=== PATIENT | male | born 1965 | race Asian ===

== ENCOUNTER 2024-04-22 10:20 | Day surgery (SDC) | payer OTHER, SELFPAY ==
--- NOTE | 2024-04-22 | PATH_ITS ---
[facility] Accession Number: [id number] No. of containers..01 Tissue . 01 Material submitted: . colon - TRANSVERSE COLON POLYPS . 01 Diagnosis: A. TRANSVERSE COLON POLYPS, POLYPECTOMY: Tubular adenoma. Sessile serrated adenoma (2 fragments). MRV 04/23/2024 1616 Local . 01 Electronically signed: . Marilynn Serrato MD, Pathologist NPI- [id number] . 01 Gross description: . TRANSVERSE COLON POLYPS: Received in formalin are 3 fragment(s) of lee, soft tissue measuring 0.2 x 0.2 x 0.1 cm to 0.4 x 0.4 x 0.3 cm submitted entirely in 1 cassette(s) /ANGELICA 04/23/2024 0131 Local . 01 Pathologist provided ICD-10: D12.6 . 01 CPT . 924129 Specimen Comment: A courtesy copy of this report has been sent to [phone] Performed at: [address] [facility] [address], [place], [place] [id number] MD Donal Godinez MD Phone: [phone]
[2024-04-22] MEDS: LACTATED RINGERS 1,000 ML 42 ML IV (11:13)
[2024-04-22 11:14] VITALS: BP 138/84; PULSE 97; RESP 16; TEMP 36.2; O2SAT 98
--- NOTE | 2024-04-22 11:48 | PM.HP.1 ---
History of Present Illness History of Present Illness Date Patient Seen: 04/22/24 Time Patient Seen: 11:48 Chief complaint: Screening Colonoscopy Narrative: 59-year-old male here for asymptomatic colon cancer screening. The patient indicates he had unknown histology colon polyps removed at his last exam some 10 years ago. I have not seen this record. [facility] Social History Smoking Status: Former smoker Meds Home Medications and Allergies Home Medications Medication Instructions Recorded Confirmed Type lisinopril 20 mg tablet 20 mg PO DAILY 04/22/24 04/22/24 History pravastatin 40 mg tablet 40 mg PO DAILY 04/22/24 04/22/24 History tamsulosin 0.4 mg capsule 0.4 mg PO DAILY 04/22/24 04/22/24 History Allergies Allergy/AdvReac Type Severity Reaction Status Date / Time simvastatin Allergy Mild Hives Verified 04/22/24 11:09 Review of Systems Review of Systems ROS: Yes All systems reviewed with the patient and are negative except as otherwise documented Exam Vital Signs (past 8 hours): - 04/22/24 11:14 Temperature 97.2 F L Pulse Rate 97 H Respiratory Rate 16 Blood Pressure 138/84 Pulse Oximetry 98 Oxygen Delivery Method Room Air Oxygen Delivery Method Room Air Const General: cooperative HENMT Head: normal to inspection Eyes General: appearance normal, both eyes and all related structures Neck Neck: normal visual inspection Chest Chest: normal inspection of the chest Resp Effort & Inspection: normal respiratory effort Cardio Rate: regular rate GI Inspection: normal to inspection Skin General: no rashes or lesions noted Neuro General: patient alert and patient awake Extrem General: normal to inspection and no pedal edema Psych Appearance: grossly normal Assessment & Plan Assessment & Plan narrative: 59-year-old male indicated for colon cancer screening. Colonoscopy is pursued today. Time-Based Coding :: [TOTAL MINUTES] spent with patient and on the chart (including review of chart, obtaining history, exam, reviewing outside data, placing orders, documenting exam and treatment plan, and counseling patient) on [DATE].
--- NOTE | 2024-04-22 11:50 | PM.HP.1 ---
History of Present Illness History of Present Illness Chief complaint: Screening Colonoscopy Narrative: 59-year-old male here for asymptomatic colon cancer screening. The patient indicates he had unknown histology colon polyps removed at his last exam some 10 years ago. I have not seen this record. [facility] Social History Smoking Status: Former smoker Meds Home Medications and Allergies Home Medications Medication Instructions Recorded Confirmed Type lisinopril 20 mg tablet 20 mg PO DAILY 04/22/24 04/22/24 History pravastatin 40 mg tablet 40 mg PO DAILY 04/22/24 04/22/24 History tamsulosin 0.4 mg capsule 0.4 mg PO DAILY 04/22/24 04/22/24 History Allergies Allergy/AdvReac Type Severity Reaction Status Date / Time simvastatin Allergy Mild Hives Verified 04/22/24 11:09 Exam Vital Signs (past 8 hours): - 04/22/24 11:14 Temperature 97.2 F L Pulse Rate 97 H Respiratory Rate 16 Blood Pressure 138/84 Pulse Oximetry 98 Oxygen Delivery Method Room Air Oxygen Delivery Method Room Air Assessment & Plan Time-Based Coding :: [TOTAL MINUTES] spent with patient and on the chart (including review of chart, obtaining history, exam, reviewing outside data, placing orders, documenting exam and treatment plan, and counseling patient) on [DATE].
--- NOTE | 2024-04-22 11:51 | PM.PREOP ---
Pre-operative Note Interval Note History & Physical reviewed/Exam performed by Physician: Yes Changes to H&P: No ASA Class (for procedural sedation): II
--- NOTE | 2024-04-22 12:17 | PM.OP.COLON ---
Operative Date/Time/Diagnoses Date of procedure: 04/22/24 Time of procedure: 12:18 Pre-op diagnosis: Colon cancer screening Post-op diagnosis: same Procedure & Clinicians Study performed: Colonoscopy with hot snare polypectomy Same procedure as scheduled: Yes Indications: Colon cancer screening Surgeon: Dung Lees Procedure Notes SCOAP/Timeout: Done Procedure in detail: After the risks and benefits were explained, written and verbal informed consent was obtained. The patient was brought into the procedure room and placed into the left lateral decubitus position. Please see anesthesia notes for sedation details. Digital rectal examination was accomplished. The scope was introduced into the patient and advanced under direct visualization to the cecum as identified by the appendiceal orifice and ileocecal valve. The scope was slowly withdrawn to carefully examine the mucosa for any defects or lesions. Comprehensive imaging was accomplished throughout the rectum including the dentate line. The colon was decompressed, the scope was then removed from the patient who tolerated the procedure well. Pediatric colonoscope Bowel prep adequate Scope withdrawal time: 15 minutes Sedation minutes: 19 Complications: none Impression: There were 3 sessile polyps in the transverse colon ranging in size from 5-7 mm. These were removed with hot snare polypectomy. No additional significant pathology was appreciated throughout. There were several scattered classic diminutive hyperplastic appearing polyps in the rectosigmoid that were left alone. There were some scattered diverticula in the right and left colon. Endoscopic diagnosis 1. Colon polyps 2. Diverticulosis Post-procedure Plan for aftercare: 1. Await histology 2. Repeat colonoscopy timing will be contingent on pathology results. Disposition: PACU
[2024-04-22 12:19] VITALS: BP 115/69; PULSE 81; RESP 16; TEMP 36.2; O2SAT 97
[2024-04-22 12:30] VITALS: BP 123/77; PULSE 88; RESP 12; O2SAT 98
[2024-04-22 12:35] VITALS: BP 131/78; PULSE 77; RESP 16; O2SAT 98
== END 2024-04-22 12:50 | disposition home or self-care (01) ==
PROVIDERS: Referring Provider Internal Medicine Gastroenterology; Visit Provider Internal Medicine Gastroenterology
PROC: 0DJD8ZZ Inspection of Lower Intestinal Tract, Via Natural or Artificial Opening Endoscopic (ICD-10-PCS; CPT 45378; principal; 2024-04-22 11:30)
DX: Z12.11 Encounter for screening for malignant neoplasm of colon (principal); K57.30 Diverticulosis of large intestine without perforation or abscess without bleeding; D12.3 Benign neoplasm of transverse colon
CPT/HCPCS: 45385; J2704